=== PATIENT | female | born 1990 | race Caucasian/White ===

== ENCOUNTER 2017-12-05 14:20 | Emergency (ER) | payer MEDICAID ==
[~2017-12-05] VITALS: Ht 160 cm; Wt 63.5 kg
[2017-12-05] MEDS ORDERED: FLUO40CA9 PO (15:00)
[2017-12-05] MEDS ORDERED: FIORICET PO (15:00)
[2017-12-05] MEDS ORDERED: ALBUTEROL INHALER (15:00)
[2017-12-05] MEDS ORDERED: ALBU1.25 NEB (15:00)
[2017-12-05] MEDS ORDERED: ANITBIOTIC (15:00)
[2017-12-05 17:50] VITALS: BP 129/85
== END 2017-12-05 17:53 | disposition home or self-care (01) ==
LOC: ED 17:40
DX: F41.1 Generalized anxiety disorder (principal); F31.9 Bipolar disorder, unspecified; G43.909 Migraine, unspecified, not intractable, without status migrainosus
CPT/HCPCS: 99284

== ENCOUNTER 2020-11-30 22:01 | Emergency (ER) | payer MEDICAID ==
[~2020-11-30] VITALS: Ht 160 cm; Wt 83.3 kg
[~2020-11-30 22:01] MED LIST: ALBU1.25 NEB; ALBUTEROL INHALER; ANITBIOTIC; FIORICET PO; FLUO40CA9 PO
[2020-11-30 23:01] LABS: BASOPHILS % (AUTO) 1 % (0-1); EOSINOPHILS % (AUTO) 0 % (1-7); LYMPHOCYTES % (AUTO) 21 % (22-44); MEAN CORPUSCULAR HEMOGLOBIN 29.8 pg (27.0-34.8); MEAN CORPUSCULAR HGB CONC 34.4 g/dL (32.4-35.8); MEAN PLATELET VOLUME 7.9 fL (7.4-10.4); MONOCYTES % (AUTO) 5 % (2-9); NEUTROPHILS % (AUTO) 74 % (42-75); PLATELET COUNT 254 x10^3/uL (130-400); RED BLOOD COUNT 4.47 x10^6/uL (3.82-5.3); RED CELL DISTRIBUTION WIDTH 12.8 % (9.6-15.2)
[2020-11-30 23:02] LABS: MD NO
[2020-11-30 23:05] LABS: ALANINE AMINOTRANSFERASE 18 U/L (12-78); ALBUMIN 3.6 g/dL (3.4-5.0); CALCIUM 8.8 mg/dL (8.5-10.1); CREATININE 0.79 mg/dL (0.55-1.02)
[2020-11-30 23:20] LABS: ANION GAP 4 mmol/L (5-15); CHLORIDE 107 mmol/L (98-107)
[2020-11-30 23:30] VITALS: BP 99/65
[2020-11-30 23:42] LABS: ALKALINE PHOSPHATASE 47 U/L (45-117); BILIRUBIN,TOTAL 0.5 mg/dL (0.2-1.0); TOTAL PROTEIN 6.7 g/dL (6.4-8.2)
== END 2020-12-01 00:29 | disposition home or self-care (01) ==
LOC: ED 12-01 00:10
DX: O20.0 Threatened abortion (principal); O99.331 Smoking (tobacco) complicating pregnancy, first trimester; F17.210 Nicotine dependence, cigarettes, uncomplicated; Z3A.01 Less than 8 weeks gestation of pregnancy
CPT/HCPCS: 36415; 76801; 80053; 84702; 85025; 86901; 99406

== ENCOUNTER 2020-12-02 16:38 | Emergency (ER) | payer MEDICAID ==
[~2020-12-02] VITALS: Ht 160 cm; Wt 82.0 kg
--- NOTE | 2020-12-02 16:58 | NUR ---
PT AMBULATED TO BR WITH UPRIGHT STEADY GAIT. PT CHANGED INTO GOWN, MONITORS IN PLACE. NAD. FAMILY AT
[2020-12-02 17:54] LABS: BASOPHILS % (AUTO) 1 % (0-1); EOSINOPHILS % (AUTO) 0 % (1-7); LYMPHOCYTES % (AUTO) 19 % (22-44); MEAN CORPUSCULAR HEMOGLOBIN 29.8 pg (27.0-34.8); MEAN CORPUSCULAR HGB CONC 34.1 g/dL (32.4-35.8); MEAN PLATELET VOLUME 7.8 fL (7.4-10.4); MONOCYTES % (AUTO) 6 % (2-9); NEUTROPHILS % (AUTO) 75 % (42-75); PLATELET COUNT 263 x10^3/uL (130-400); RED BLOOD COUNT 4.64 x10^6/uL (3.82-5.3)
[2020-12-02 17:56] LABS: MD NO
[2020-12-02 18:00] LABS: ALBUMIN 3.9 g/dL (3.4-5.0); ANION GAP 5 mmol/L (5-15); CALCIUM 8.9 mg/dL (8.5-10.1); CHLORIDE 108 mmol/L (98-107); CREATININE 0.76 mg/dL (0.55-1.02)
[2020-12-02 18:12] VITALS: BP 118/64
--- NOTE | 2020-12-02 18:12 | NUR ---
PT SITTING ON STAR, KAYDEN/VSS. FAMILY AT BS. NO NEEDS AT THIS TIME
--- NOTE | 2020-12-02 18:48 | NUR ---
REPORT GIVEN TO ROLANDO MAGALLANES
[2020-12-02 18:50] LABS: MICROSCOPIC NOT IND
== END 2020-12-02 19:19 | disposition home or self-care (01) ==
LOC: ED 19:00
DX: O20.0 Threatened abortion (principal); G43.909 Migraine, unspecified, not intractable, without status migrainosus; Z3A.01 Less than 8 weeks gestation of pregnancy
CPT/HCPCS: 36415; 80048; 81003; 82040; 84702; 85025; 99283